=== PATIENT | female | born 1970 | race Caucasian/White ===

== ENCOUNTER → 2016-10-20 | Day surgery (SDC) | payer OTHER ==
[~2016-10-20] MED LIST: ACETAMINOPHEN/HYDROcodone 325 MG/5 MG TAB ONE; BACITRACIN IM FOR SOLN 50,000 UNIT VIAL ONE; BUPIVACAINE HCL PF 0.75% 30 ML VIAL ONE; IBUP600T26 PO; KETOROLAC TROMETHAMINE 30 MG/ML (IVP) VIAL IV PUSH ONE; LACTATED RINGER'S 1000 ML INJ 1,000 ML ONE; LIDOCAINE 1.5%/EPINEPHrine 1:200,000 PF SOLN 30 ML AMP ONE; MIDAZOLAM HCL 5 MG/ML VIAL (1 ML) ONE; MORPHINE SULFATE 4 MG/ML INJ ONE; ONDANSETRON HCL 4 MG/2 ML VIAL IV PUSH ONE; PROPOFOL 500 MG/50 ML BTL IV ONE; SODIUM CHLORIDE 0.9% 20 ML VIAL ONE; ceFAZolin 2 GM PREMIX 50 ML ONE; ceFAZolin INJ 1,000 MG VIAL ONE
--- NOTE | 2016-10-24 20:36 | MP ---
cc: AYO MINOR DATE OF SURGERY 10/20/16 PREOPERATIVE DIAGNOSIS Left knee anterior cruciate ligament tear, left knee lateral meniscus tear. POSTOPERATIVE DIAGNOSES Left knee anterior cruciate ligament tear, left knee lateral meniscus tear. PROCEDURE Left knee arthroscopic anterior cruciate ligament allograft reconstruction left knee, arthroscopic partial lateral meniscectomy. SURGEON Dr. Ayo Minor TRUCKLOAD CHECKER LIBIA Daigle ANESTHESIA General with a femoral nerve block. ESTIMATED BLOOD LOSS Less than 10 cc. TOURNIQUET TIME Zero. COMPLICATIONS None. IDENTIFICATION The patient is a 45-year-old female who injured her left knee resulting in the above-named injury. She complained of pain, swelling, instability symptoms as related to her condition with failure of conservative treatment. Clinical exam as well as MRI confirmed the above-named findings. The patient was counseled as to the risks, benefits and alternatives to the above named surgical procedure. She did wish to proceed with surgery. PROCEDURE IN DETAIL A written consent obtained. The patient was identified by name, taken to the operating room and placed supine on the operating table. General anesthesia was administered as well 2 grams of IV Ancef. She did receive preoperative femoral nerve block. The patient was transferred to the operating table. The left thigh carefully placed in well-padded leg escobar. The left lower extremity prepped and draped using isopropyl alcohol, Hibiclens solution, DuraPrep solution. After appropriate time-out was performed a medial and lateral parapatellar arthroscope portal was established. The patellofemoral joint revealed minimal chondromalacia. The medial compartment revealed a small area of focal grade 2 chondromalacia along the lateral portion of the medial femoral condyle. No evidence of meniscal tearing. The intercondylar notch revealed destruction of anterior cruciate ligament. The lateral compartment revealed an unstable parrot beak cleavage tear mid bilateral meniscus. An arthroscopic shaver was introduced in the lateral compartment. Partial lateral meniscectomy was performed. The meniscal rim was then probed and noted to be stable. The shaver was used to debride the torn anterior cruciate ligament stump. An arthroscopic bur was used to perform a ___. The posterior wall was well-visualized. An Arthrex retro cutting tibial guide centered in the footprint of the beaver ACL. A guide pin was used to capture the 10 mm drill bit and the tibial tunnel was retro cut 10 mm in diameter. The shaver was used to clean soft tissue and bone debris from within the knee joint. An Arthrex 7-mm [id number] medial portal guide was placed from the medial portal onto lateral femoral condyle. The knee was hyperflexed and the guide pin was drilled exiting the lateral femoral condyle. A low profile cannulated 10 mm reamer was drilled to a depth of 30 mm. The shaver was again used to clean soft tissue and bone debris from within the knee joint. At this point Morgan Pandya, physician ophthalmic surgical assistant certified, fashioned the business development sales executive tibialis tendon allograft to a ko diameter of 10 mm, #2 fiber wire whip stitch was placed in the proximal and distal portion of the graft. The graft free tensioned on the back table. An Arthrex tightrope was then placed in the midportion of the graft. Sutures from the tightrope were placed through the eyelet of a fiber link suture. The sutures was then shuttled from the tibial tunnel exiting femoral tunnel. The flip anchor was then pulled from the tibial tunnel exiting the femoral tunnel onto lateral cortex. Once this obtained good purchase and fixation the graft was then pulled all the way from the tibial tunnel and the femoral tunnel and well seated. The graft taken through a full range of motion. No evidence of pistoning or impingement. The leg was held in near full extension and with the graft tension a guide wire was placed along the anterior border of the graft. An Arthrex 9 x 28 mm bioabsorbable interfering screw was used for fixation. Intraoperative ____ examination was performed which was negative. The graft exiting the tibial tunnel was surgically removed with a 15 blade scalpel. Tibial incisions were closed with 3-0 Vicryl suture. The skin incision was closed with 3-0 Prolene suture. Sterile dressing was applied. The patient tolerated the procedure well with no intraoperative complications noted. Morgan Pandya, physician ophthalmic surgical assistant certified, was present during the entire procedure to include patient positioning, the procedure itself. The medical necessity of physician ophthalmic surgical assistant was indicated in this case due to the complexity of the procedure, appropriate manipulation of leg and also traction and visualization with the camera. He assisted with preparation of the graft, drilling of tunnels and implantation of both the graft and fixation devices for purpose of reconstruction. MD MARIUM Matson/ESTEPHANIA /9:57 AM /7:17 PM
== END | disposition home or self-care (01) ==
LOC: ESDC 07:14
PROVIDERS: ATTEND Orthopaedic Surgery Sports Medicine
DX: S83.512A Sprain of anterior cruciate ligament of left knee, initial encounter (principal); S83.282A Other tear of lateral meniscus, current injury, left knee, initial encounter
CPT/HCPCS: 01400; 01991; 29881; 29888; 64447; C1713; J0690; J1885; J2250; J2270; J2405; J3010; J7120